=== PATIENT | female | born 1940 | race Caucasian/White ===

== ENCOUNTER 2016-11-10 21:53 | Emergency (ER) | payer MEDICARE ==
[2016-11-10] MEDS ORDERED: ONDANSETRON ODT 8 MG TAB.RAPDIS PO ONE (22:16)
--- NOTE | 2016-11-10 22:17 | ER NURSING DOCUMENTATION ---
Nurse's Notes [facility] Name:Saray Maxwell Age:76 yrs Sex:Female :1940 Arrival Date:11/10/2016 Time:21:51 Bed5 Private MD: Diagnosis:Medication Poisoning, Unspecified Drug or Medicinal Substance Presentation: 11/10 21:54 Presenting complaint: Patient states: pt states she accidently took her husbands bw2 medications. she took 28 mg of Namenda, metoprolol ER 50mg, rivastigmine 6mg, tamsulosin 0.4mg . pt states she feels nauseated. Transition of care: patient was not received from another setting of care. 21:54 Acuity: FERNANDA 3 bw2 21:54 Method Of Arrival: Walk In 2 Triage Assessment: 21:57 General: Appears in no apparent distress, Behavior is anxious. Pain: Denies pain. GI: bw2 Reports nausea. Historical: - Allergies: No known drug Allergies; - Tetanus: < 10 years. - Ebola Screening: : Patient negative for fever greater than or equal to 101.5 degrees Fahrenheit, and additional compatible Ebola Virus Disease symptoms. Patient denies exposure to infectious person. Patient denies travel to an Ebola-affected area in the 21 days before illness onset. No symptoms or risks identified at this time. . - Immunization history: Flu Vaccine < 1 year. - Social history: Smoking status: Patient states was never smoker of tobacco. Screenin:58 Infectious Disease Risk None. Abuse screen: Denies threats or abuse. Nutritional bw2 screening: No deficits noted. Assessment: 21:58 See Triage Assessment done by same RN. GI: Dry heaves. bw2 Vital Signs: 21:57 BP 151 / 61; Pulse 77; Resp 18; Temp 98; Pulse Ox 98% ; Weight 68.04 kg; Height 5 ft. 4 bw2 in. (162.56 cm); Pain 0/10; 21:57 Body Mass Index 25.75 (68.04 kg, 162.56 cm) bw2 ED Course: 21:51 Patient arrived in ED. em3 21:54 Veda Barnes is Primary Nurse. bw2 21:56 Triage completed. bw2 21:58 Valuables Remains with patient Bed in low position. bw2 21:59 Benny Davenport MD is Attending Physician. byron Administered Medications: 22:04 Drug: Zofran 8 mg; Route: PO; bw2 22:16 Follow up: Response: No adverse reaction bw2 22:16 Drug: Zofran 1 tablet; Route: PO; bw2 22:16 Follow up: Response: Pharmacy closed - take home med pack bw2 Outcome: 22:04 Discharge ordered by . byron 22:16 Discharged to home via wheelchair. bw2 22:16 Condition: good 22:16 Discharge Assessment: Patient awake, alert and oriented x 3. No cognitive and/or functional deficits noted. Patient verbalized understanding of disposition instructions. 22:16 Discharge instructions given to patient, family, Instructed on discharge instructions, follow up and referral plans. Demonstrated understanding of instructions, Prescriptions given X 22:17 Patient left the ED. bw2 Signatures: Benny Davenport MD MD jm Meiklejohn, Eric em3 Wisely, Beth bw2
--- NOTE | 2016-11-10 22:17 | ER PHYSICIAN DOCUMENTATION ---
Physician Documentation [facility] Name:Saray Maxwell Age:76 yrs Sex:Female :1940 Arrival Date:11/10/2016 Time:21:51 Bed5 Private MD: Benny Matthews Disposition: 11/10/16 22:04 Discharged to Home/Self Care. Impression: Medication Poisoning, Unspecified Drug or Medicinal Substance. - Condition is Good. - Discharge Instructions: NAUSEA VOMITING 6yAdult - VOMITING (7y-Adult). - Medical Reconciliation form form. - Follow up: Private Physician; When: As needed; Reason: Continuance of care. - Problem is new. - Symptoms have improved. HPI: 11/10 22:30 This 76 yrs old Female presents to ER via Walk In with complaints of Nausea. jm 22:30 The patient presents to the emergency department with nausea. Onset: The jm symptom(s)/episode began/occurred 3.5 hour(s) ago. Possible causes: pt took her husbands pills tonight and now she is nauseated. No other sx. Metoprolol, Namenda, rivastigmine, and tamsulosin. She cant remember the doses. Only one pill of each. Historical: - Allergies: No known drug Allergies; - Tetanus: < 10 years. - Ebola Screening: : Patient negative for fever greater than or equal to 101.5 degrees Fahrenheit, and additional compatible Ebola Virus Disease symptoms. Patient denies exposure to infectious person. Patient denies travel to an Ebola-affected area in the 21 days before illness onset. No symptoms or risks identified at this time. . - Immunization history: Flu Vaccine < 1 year. - Social history: Smoking status: Patient states was never smoker of tobacco. ROS: 22:30 ENT: Negative for injury or acute deformity. jm 22:30 Neck: Negative for injury or acute deformity. 22:30 Abdomen/GI: Positive for nausea, Negative for abdominal pain, vomiting, diarrhea. Exam: 22:30 Constitutional: The patient appears alert, awake. 22:30 Cardiovascular: Rate: normal, Rhythm: regular. 22:30 Psych: Behavior/mood is pleasant, cooperative, anxious, Affect is calm. Vital Signs: 21:57 BP 151 / 61; Pulse 77; Resp 18; Temp 98; Pulse Ox 98% ; Weight 68.04 kg; Height 5 ft. 4 bw2 in. (162.56 cm); Pain 0/10; 21:57 Body Mass Index 25.75 (68.04 kg, 162.56 cm) bw2 MDM: 21:59 Patient medically screened. byron 22:00 ED course: . byron 22:32 Differential diagnosis: accidental drug poisening. Data reviewed: vital signs, nurses byron notes, and as a result, I will discharge patient. Counseling: I had a detailed discussion with the patient and/or guardian regarding: the historical points, exam findings, and any diagnostic results supporting the discharge/admit diagnosis, the need for outpatient follow up, with the patient's primary care provider. Dispensed Medications: 22:04 Drug: Zofran 8 mg; Route: PO; bw2 22:16 Follow up: Response: No adverse reaction bw2 22:16 Drug: Zofran 1 tablet; Route: PO; bw2 22:16 Follow up: Response: Pharmacy closed - take home med pack bw2 Signatures: Benny Davenport MD MD jm Wisely, Beth bw2
[2016-11-10] MEDS ORDERED: ONDANSETRON ODT PREPAC 4 MG TAB.RAPDIS PO ONE (22:20)
== END 2016-11-10 22:17 | disposition home or self-care (01) ==
LOC: ER 21:53
DX: T44.7X1A Poisoning by beta-adrenoreceptor antagonists, accidental (unintentional), initial encounter (principal); T43.8X1A Poisoning by other psychotropic drugs, accidental (unintentional), initial encounter; T44.6X1A Poisoning by alpha-adrenoreceptor antagonists, accidental (unintentional), initial encounter; T50.991A Poisoning by other drugs, medicaments and biological substances, accidental (unintentional), initial encounter; R11.0 Nausea
CPT/HCPCS: 99283